=== PATIENT | male | born 1990 | race African-American/Black ===

== ENCOUNTER 2020-08-02 12:40 | Emergency (ER) | payer SELFPAY ==
[~2020-08-02] VITALS: Ht 167.6 cm; Wt 77.1 kg
[2020-08-02 14:31] LABS: BASOPHIL % 0.2 % (0.2-1.5); PLATELET COUNT 182 x10^3mcL (152-348); RED CELL DISTRIBUTION WIDTH 14.5 % (12.1-16.2)
[2020-08-02 14:38] LABS: CALCIUM 9.4 mg/dL (8.5-10.1); CARBON DIOXIDE 30.1 mmol/L (21-32); CHLORIDE SERUM 100 mmol/L (98-107); CREATININE SERUM 1.1 mg/dL (0.7-1.3); GFR1 > 60 mL/min; GLUCOSE SERUM 97 mg/dL (74-106); POTASSIUM SERUM 3.3 mmol/L (3.5-5.1); SODIUM SERUM 139 mmol/L (136-145)
[2020-08-02 14:42] LABS: microscopic required? NO
[2020-08-02 14:44] LABS: ALBUMIN 3.9 g/dL (3.4-5.0); ALKALINE PHOSPHATASE 90 U/L (46-116); ALT/SGPT 35 U/L (16-63); AST/SGOT 25 U/L (15-37); BILIRUBIN TOTAL 0.3 mg/dL (0.20-1.00); TOTAL PROTEIN, SERUM 7.4 g/dL (6.4-8.2)
[2020-08-02 14:50] LABS: UA SPECIFIC GRAVITY 1.015 (1.005-1.035); urine erythrocyte NEGATIVE (NEGATIVE)
[2020-08-02 15:12] LABS: AMPHETAMINE QUAL UR POSITIVE (See below)
[2020-08-02 19:20] VITALS: BP 139/86
== END 2020-08-02 19:20 | disposition home or self-care (01) ==
LOC: ED 12:40
PROVIDERS: Emergency Medicine
DX: R45.851 Suicidal ideations (principal); Z20.828 Contact with and (suspected) exposure to other viral communicable diseases
CPT/HCPCS: G0480; U0003